=== PATIENT | female | born 1970 | race Asian ===

== ENCOUNTER 2018-09-09 10:10 | Emergency (ER) | payer SELFPAY ==
[~2018-09-09] VITALS: Ht 167.6 cm; Wt 68.5 kg
--- NOTE | 2018-09-09 10:15 | NUR ---
PT BIB FAMILY TO ER BED 04. 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 GOWNED AND PLACED ON MONITOR. VSS. AWAITING MD TRIPP.
--- NOTE | 2018-09-09 10:47 | NUR ---
Patient does not wish to proceed with medical care recommended by Dr. BOWERS. Patient given information related to possible complications, up to and including , which could occur as a result of leaving the hospital at this time. Patient verbalizes understanding of risks involved due to leaving against medical advice. Patient has signed AMA form.
--- NOTE | 2018-09-09 10:59 | NUR ---
Patient discharged to home in stable condition. Written and verbal after care instructions given. Patient verbalizes understanding of instruction.
[2018-09-09 11:00] VITALS: BP 125/77
== END 2018-09-09 11:01 | disposition left against medical advice (07) ==
LOC: ER 10:12
DX: F41.9 Anxiety disorder, unspecified (principal); R06.4 Hyperventilation; R20.2 Paresthesia of skin